=== PATIENT | male | born 1990 | race Two or more races ===

== ENCOUNTER 2024-05-13 21:14 | Emergency (ER) | payer MEDICAID ==
[~2024-05-13] VITALS: Ht 177.8 cm; Wt 68.0 kg
[2024-05-13 22:06] VITALS: BP 105/76; TEMP 98.1; O2SAT 98
[2024-05-13] MEDS ORDERED: DIPH25CA83 PO (22:25)
[2024-05-13] MEDS ORDERED: CLIN300C12 PO (22:25)
[2024-05-13] MEDS ORDERED: PRED20TA PO (22:25)
[2024-05-13] MEDS ORDERED: diphenhydrAMINE HCL 25 MG CAPSULE ONE (22:34)
[2024-05-13] MEDS ORDERED: FAMOTIDINE (20 MG) 20 MG TABLET ONE (22:34)
[2024-05-13] MEDS ORDERED: predniSONE 20 MG TABLET ONE (22:34)
[2024-05-13] MEDS: diphenhydrAMINE HCL 50 MG CAPSULE PO ONE (22:35)
[2024-05-13] MEDS: predniSONE 10 MG TABLET PO ONE (22:35)
[2024-05-13] MEDS: FAMOTIDINE (20 MG) 20 MG TABLET PO ONE (22:35)
== END 2024-05-13 22:42 | disposition home or self-care (01) ==
LOC: ER 21:29
DX: L03.113 Cellulitis of right upper limb (principal); Z90.49 Acquired absence of other specified parts of digestive tract; Z88.1 Allergy status to other antibiotic agents; W57.XXXA Bitten or stung by nonvenomous insect and other nonvenomous arthropods, initial encounter; Y93.89 Activity, other specified; Y92.89 Other specified places as the place of occurrence of the external cause; Y99.8 Other external cause status
CPT/HCPCS: 99284; Q0163; J7512